=== PATIENT | male | born 1960 | race Caucasian/White ===

== ENCOUNTER 2019-08-19 21:51 | Emergency (ER) | payer BC, OTHER ==
[~2019-08-19] VITALS: Ht 188 cm; Wt 108.2 kg
[2019-08-19] MEDS ORDERED: ZOCO80TA (22:00)
[2019-08-19] MEDS ORDERED: PARO15TA (22:00)
[2019-08-19] MEDS ORDERED: LISI10TA4 (22:00)
[2019-08-19] MEDS ORDERED: ADACEL/BOOSTRIX VACCINE (DIPHTH/PERTUSS/ACELL/TETANUS)0.5ML SYR (90715) IM ONE (22:45)
[2019-08-19] MEDS ORDERED: LIDOCAINE 2% MDV 20 ML VIAL SC ONE (22:45)
[2019-08-19] MEDS ORDERED: AUGMENTIN 875 MG TAB PO ONE (23:15)
[2019-08-19] MEDS ORDERED: AUGM875T28 PO (23:19)
[2019-08-19 23:29] VITALS: BP 144/85
== END 2019-08-19 23:30 | disposition home or self-care (01) ==
LOC: M ED 21:51
DX: S61.011A Laceration without foreign body of right thumb without damage to nail, initial encounter (principal); W26.0XXA Contact with knife, initial encounter; Y99.8 Other external cause status; I10 Essential (primary) hypertension; Z79.82 Long term (current) use of aspirin

== ENCOUNTER → 2021-06-04 | Outpatient (CLI) | payer BC, OTHER ==
[~2021-06-04] MED LIST: AUGM875T28 PO; LISI10TA22; PARO30TA4; ZOCO80TA
--- NOTE | 2021-06-04 15:23 | REPPI ---
INDICATION: ELEVATED PSA. COMPARISON: None. TECHNIQUE: Transrectal prostate sonography. FINDINGS: Trans rectal prostate sonography demonstrates unremarkable seminal vesicles. Prostate gland is heterogeneous, with calcifications and cystic changes noted. Glandular dimensions are measured at 6.1 x 4.8 x 6.9 cm with a calculated glandular volume of 105 ml. Transrectal sonographic guidance is provided to Dr. Akbar who performed trans rectal ultrasound guided needle biopsy procedure. IMPRESSION: Transrectal prostate sonographic findings as above. <Electronically signed by Bonifacio Barnes > 06/04/21 0250
== END ==
LOC: M PLAIMG 08:42
PROVIDERS: ATTEND Urology
DX: R97.20 Elevated prostate specific antigen [PSA] (principal)
CPT/HCPCS: 76872; 76942; G0416

== ENCOUNTER → 2023-10-12 | Outpatient (REF) | payer BC, OTHER ==
[2023-10-12 19:24] LABS: APPEARANCE, URINE CLEAR (CLEAR); BACTERIA, URINE AUTO NEGATIVE (NEGATIVE); BILIRUBIN, URINE AUTO NEGATIVE (NEGATIVE); BLOOD, URINE BLOOD NEGATIVE (NEGATIVE); COLOR, URINE YELLOW (YELLOW); GLUCOSE, URINE (UA) AUTO NEGATIVE (NEGATIVE); KETONE, URINE AUTO NEGATIVE (NEGATIVE); LEUKOCYTE ESTERASE, URINE AUTO NEGATIVE (NEGATIVE); MUCUS, URINE SMALL (NEGATIVE); NITRITE, URINE AUTO NEGATIVE (NEGATIVE); PROTEIN, URINE AUTO NEGATIVE (NEGATIVE); RBC, URINE AUTO 0 /HPF (0-3); SPECIFIC GRAVITY URINE AUTO 1.015 (1.002-1.035); SQUAMOUS EPITHELIAL CELL UR AU 0 /HPF (0-6); UROBILINOGEN, URINE AUTO 0.2 mg/dL (0.0-2.0); WBC, URINE AUTO 0 /HPF (0-3)
== END ==
LOC: M SMT 18:06
PROVIDERS: ATTEND Urology
DX: R31.0 Gross hematuria (principal)

== ENCOUNTER → 2023-11-12 | Outpatient (CLI) | payer BC, OTHER ==
[~2023-11-12] MED LIST changes: +ASPI81TA26 PO; +ISOVUE-370 76% 100ML VIAL As Ordered ONE; +LISI10TA22 PO; +PARO30TA3 PO; +SIMV40TA20 PO; +VITMTA PO
== END ==
LOC: M RAD 12:28
PROVIDERS: ATTEND Urology
DX: R31.0 Gross hematuria (principal); N28.1 Cyst of kidney, acquired; K57.30 Diverticulosis of large intestine without perforation or abscess without bleeding; N40.0 Benign prostatic hyperplasia without lower urinary tract symptoms
CPT/HCPCS: 74178; Q9967

== ENCOUNTER 2024-04-13 06:59 | Day surgery (SDC) | payer BC ==
[~2024-04-13] VITALS: Ht 188 cm; Wt 101.1 kg
[~2024-04-13 06:59] MED LIST changes: +COLC0.6T47 PO; +FINA5TAB2 PO; -ISOVUE-370 76% 100ML VIAL As Ordered ONE; +MULTTAB61 PO; +NS 1,000 ML IV ONE; +SIMVPOW2 PO; +TAMS1CAP17 PO
[2024-04-13] MEDS ORDERED: LIDOCAINE 2% 100MG/5ML SDV (FOR ANES.) As Ordered ONE (07:20)
[2024-04-13] MEDS ORDERED: propofoL 200 MG/20 ML VIAL As Ordered ONE (07:20)
[2024-04-13 08:27] VITALS: TEMP 98.3
[2024-04-13 08:40] VITALS: BP 122/68; O2SAT 98
== END 2024-04-13 08:45 | disposition home or self-care (01) ==
LOC: M OPP 06:59
PROVIDERS: ATTEND Internal Medicine Gastroenterology
DX: Z12.11 Encounter for screening for malignant neoplasm of colon (principal); K64.0 First degree hemorrhoids; K57.30 Diverticulosis of large intestine without perforation or abscess without bleeding; G35 Multiple sclerosis; I10 Essential (primary) hypertension; Z79.02 Long term (current) use of antithrombotics/antiplatelets; Z79.82 Long term (current) use of aspirin; Z79.899 Other long term (current) drug therapy

== ENCOUNTER → 2024-07-28 | Outpatient (REF) | payer BC ==
[~2024-07-28] MED LIST changes: -NS 1,000 ML IV ONE
[2024-07-28 14:26] LABS: APPEARANCE, URINE CLOUDY (CLEAR); BACTERIA, URINE AUTO NEGATIVE (NEGATIVE); BILIRUBIN, URINE AUTO NEGATIVE (NEGATIVE); BLOOD, URINE BLOOD 3+ (NEGATIVE); COLOR, URINE YELLOW (YELLOW); GLUCOSE, URINE (UA) AUTO NEGATIVE (NEGATIVE); KETONE, URINE AUTO TRACE mg/dL (NEGATIVE); LEUKOCYTE ESTERASE, URINE AUTO 3+ (NEGATIVE); MUCUS, URINE SMALL (NEGATIVE); NITRITE, URINE AUTO NEGATIVE (NEGATIVE); PROTEIN, URINE AUTO 2+ mg/dL (NEGATIVE); RBC, URINE AUTO 156 /HPF (0-3); SPECIFIC GRAVITY URINE AUTO 1.012 (1.002-1.035); SQUAMOUS EPITHELIAL CELL UR AU 0 /HPF (0-6); UROBILINOGEN, URINE AUTO 0.2 mg/dL (0.0-2.0); WBC, URINE AUTO TNTC /HPF (0-3)
== END ==
LOC: M SMT 13:06
PROVIDERS: ATTEND Nurse Practitioner Family
DX: R30.0 Dysuria (principal)